=== PATIENT | female | born 1940 | race Caucasian/White ===

== ENCOUNTER 2017-01-28 13:17 | Day surgery (SDC) | payer MEDICARE, BC ==
[~2017-01-28] VITALS: Ht 152.4 cm; Wt 53.1 kg
[~2017-01-28 13:17] MED LIST: FOSAMAX 70MG TA70 MG PO; NORCO 325 MG-51 TAB PO; PRILOSEC 20MG20 MG PO
[2017-01-28 13:34] VITALS: BP 143/78; PULSE 71; TEMP 97.7
[2017-01-28] MEDS ORDERED: NEXIUM 40MG40 MG PO (13:53)
[2017-01-28] MEDS ORDERED: [UNRECOGNIZED DRUG - REMARK] PO (13:53)
[2017-01-28] MEDS ORDERED: CALCIUM CARB500 MG PO (13:55)
[2017-01-28] MEDS ORDERED: PROLIA60 MG/ML IM (13:56)
[2017-01-28 14:52] VITALS: BP 109/60; PULSE 65
[2017-01-28 15:07] VITALS: BP 105/62; PULSE 64
[2017-01-28 15:12] VITALS: BP 120/65; PULSE 79
== END 2017-01-28 15:30 | disposition home or self-care (01) ==
LOC: SDCO 13:17
DX: Z86.010 Personal history of colon polyps (principal); K64.1 Second degree hemorrhoids; K57.30 Diverticulosis of large intestine without perforation or abscess without bleeding
CPT/HCPCS: J2250; J3010; J7030

== ENCOUNTER 2017-03-02 11:57 | Outpatient (CLI) | payer MEDICARE, BC ==
[~2017-03-02] VITALS: Ht 152.4 cm; Wt 54.5 kg
[~2017-03-02 11:57] MED LIST changes: +CALCIUM CARB500 MG PO; +NEXIUM 40MG40 MG PO; +PROLIA60 MG/ML IM; +[UNRECOGNIZED DRUG - REMARK] PO
[2017-03-02 12:45] VITALS: BP 111/49; PULSE 61; TEMP 98.6
[2017-03-02] MEDS ORDERED: CRANBERRY FRUI405 MG PO (12:53)
== END 2017-03-02 15:44 | disposition home or self-care (01) ==
LOC: EUO 11:57
DX: M81.0 Age-related osteoporosis without current pathological fracture (principal); Z79.899 Other long term (current) drug therapy
CPT/HCPCS: J3489

== ENCOUNTER → 2018-09-06 | Outpatient (REF) ==
[~2018-09-06] MED LIST changes: +CRANBERRY FRUI405 MG PO
== END ==
LOC: ZLAB.WCH 15:13
DX: Z01.89 Encounter for other specified special examinations (principal)

== ENCOUNTER 2021-06-28 13:43 | Observation (INO) | payer MEDICARE, OTHER ==
[~2021-06-28] VITALS: Ht 154.9 cm; Wt 49.9 kg
[2021-06-28 15:13] LABS: COLLECTION METHOD CLEAN CATCH
[2021-06-28 15:23] LABS: HEMATOCRIT 46.6 % (37.0-47.0); HEMOGLOBIN 14.8 g/dl (12.5-16.0); MEAN CELL VOLUME 94 fl (80.0-100.0); MEAN CORPUSCULAR HEMOGLOBIN 30 pg (27.0-31.0); MEAN CORPUSCULAR HGB CONC 32 g/dl (33.0-37.0); PLATELET COUNT 254 K/mm3 (130-400); RED BLOOD COUNT 4.94 M/mm3 (4.10-5.30); REDCELL DISTRIBUTION WIDTH-CV 13.2 % (11.5-14.5)
[2021-06-28 15:29] LABS: BUDDING YEAST Present /hpf; MUCOUS Present /lpf; PH 8 (5-8); SQUAMOUS EPITHELIAL 0-2 /hpf; URINE APPEARANCE Cloudy; URINE BACTERIA None Seen /hpf; URINE BILIRUBIN Negative (NEGATIVE); URINE BLOOD Negative (NEGATIVE); URINE COLOR Yellow; URINE GLUCOSE Negative (NEGATIVE); URINE KETONE 2+ (NEGATIVE); URINE LEUKOCYTE ESTERASE 1+ (NEGATIVE); URINE NITRATE Negative (NEGATIVE); URINE PROTEIN(semi-quant) Negative (NEGATIVE); URINE UROBILINOGEN Negative (NEGATIVE)
[2021-06-28 15:44] LABS: BAND 1 % (0-10); LYMPHOCYTE 5 % (20.0-51.0); NEUTROPHILS 92 % (42.0-75.2)
[2021-06-28 15:45] LABS: HYPOCHROMIA 2+; PLATELET ESTIMATE NORMAL (NORMAL)
[2021-06-28 15:46] LABS: ALANINE AMINOTRANSFERASE 17 U/L (0-55); ALBUMIN 3.7 gm/dL (3.4-4.8); ALKALINE PHOSPHATASE 96 U/L (40-150); ANION GAP 13 mmol/L (7-16); AST,SGOT 17 U/L (5-34); BILIRUBIN,TOTAL 0.6 mg/dL (0.2-1.2); BLOOD UREA NITROGEN 13 mg/dL (10-20); C-REACTIVE PROTEIN 0.21 mg/dL (0.00-0.50); CALCIUM 9.8 mg/dL (8.4-10.2); CARBON DIOXIDE 26 mmol/L (23-31); CHLORIDE 104 mmol/L (98-107); GLUCOSE 126 mg/dL (70-99); LIPASE < 10 U/L (8-78); POTASSIUM 3.6 mmol/L (3.5-4.5); SODIUM 143 mmol/L (136-145); TOTAL PROTEIN 6.9 gm/dL (6.2-8.1)
--- NOTE | 2021-06-28 21:30 | NUR ---
PATIENT UP TO ROOM 348 FROM PACU. PATIENT HAS 3 LAP SITES TO ABDOMEN COVERED WITH BANDAIDS. PATIENT IS COMPLAINING OF PAIN THERE, PAIN MEDS GIVEN PER ORDERS. PATIENT IS ON POSTOP VITALS. PATIENT ON GENERAL DIET AND HAS IV TO RIGHT FOREARM. PATIENT IS ON 2L O2 NC. PATIENT IS ALERT AND ORIENTED X4 BUT DROWSY. PATIENT WAS ABLE TO VOID WHEN SHE GOT UP TO BATHROOM. STEADY GAIT. PATIENT NOW LEAVING. PATIENT DENIES FURTHER NEEDS AT THIS TIME. PATIENT HAS SCDS ON BILATERAL LOWER EXTREMITIES. CALL LIGHT WITHIN REACH. HEAD TO TOE ASSESSMENT COMPLETE.
[2021-06-28 21:31] VITALS: BP 130/57; PULSE 95; TEMP 98.2
[2021-06-28 21:33] VITALS: BP 130/57; PULSE 95; TEMP 98.2
[2021-06-28 21:46] VITALS: BP 125/63; PULSE 97
[2021-06-28 22:16] VITALS: BP 140/66; PULSE 97
[2021-06-28 22:46] VITALS: BP 139/64; PULSE 97
[2021-06-28 23:16] VITALS: BP 133/62; PULSE 93
[2021-06-29 00:16] VITALS: BP 124/52; BP 134/58; PULSE 101; TEMP 98.2
--- NOTE | 2021-06-29 00:29 | NUR ---
PATIENT GIVEN K PAD TO HELP WITH ABD DISCOMFORT
[2021-06-29 01:16] VITALS: BP 124/52; PULSE 101
[2021-06-29 03:41] VITALS: BP 138/55; PULSE 104; TEMP 97.9
--- NOTE | 2021-06-29 06:25 | NUR ---
PATIENT DID WELL THROUGHOUT NIGHT. SLEPT MOST OF NIGHT. GIVEN PAIN MEDS PER ORDERS. SHOULD DISCHARGE TODAY. WILL REPORT TO DAYSHIFT.
[2021-06-29 07:59] VITALS: BP 94/78; PULSE 104; TEMP 98.2
--- NOTE | 2021-06-29 08:00 | NUR ---
Patient sitting up in bed watching TV. A&Ox4. VSS. IV CDI. Abdomen lap sitesx3 CDI. Denies pain and discomfort. Tolerating PO intake. No further needs expressed. Call light within reach
[2021-06-29] MEDS ORDERED: NORCO 325 MG-51 TAB PO (09:17)
--- NOTE | 2021-06-29 09:52 | NUR ---
Discharge paperwork reviewed with the patient. Patient verbalized an understanding to follow doctors orders. IV removed tip intact, bandaid applied. No further needs expressed. Patient waiting on ride to come flower buncher or picker. Call light within reach
--- NOTE | 2021-06-29 10:30 | NUR ---
Patient ambulated independently with nursing staff to the ED entrance. Discharge paperwork and personal belongings with the patient. No further needs expressed.
--- NOTE | 2021-06-29 12:12 | NUR ---
Plans to return home with Donnie . Daughter is Jayleen who will help. Patient reports that her is POA and and son to transport home. PCP is Dr. Herrera and denies having DME supports. Patient report that they reside in [place] and obtained medications from [facility]. Denies any pain or care concerns. Will continue to follow for any issues.
== END 2021-06-29 10:30 | disposition home or self-care (01) ==
LOC: COL.ER 13:43 → SURG 18:38
PROVIDERS: Nurse Practitioner; ADMIT Surgery
DX: K81.2 Acute cholecystitis with chronic cholecystitis (principal); K82.8 Other specified diseases of gallbladder; K21.9 Gastro-esophageal reflux disease without esophagitis; D36.10 Benign neoplasm of peripheral nerves and autonomic nervous system, unspecified; M41.9 Scoliosis, unspecified; M81.0 Age-related osteoporosis without current pathological fracture; Z90.710 Acquired absence of both cervix and uterus; Z79.899 Other long term (current) drug therapy
CPT/HCPCS: G0378; J0330; J0360; J0690; J1100; J2270; J2370; J2405; J2704; J3010; J7030; Q9967

== ENCOUNTER → 2023-08-27 | Outpatient (CLI) | payer MEDICARE, OTHER | LOC: COL.RAD 12:42 | DX: D33.4 Benign neoplasm of spinal cord (principal) | CPT/HCPCS: A9575 ==